=== PATIENT | male | born 1930 | race Caucasian/White ===

== ENCOUNTER 2017-10-30 09:40 | Outpatient (CLI) | payer MEDICARE, BC ==
--- NOTE | 2017-10-30 12:25 | CT ---
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 The order states Patient will hand carry disc of last scans to give to technology consultant. However, when a sked, the patient and his stated that they gave the disc to Dr. Yeung. There is no disc availa ble for comparison. TECHNIQUE: Precontrast scan of brain IV injection iodinated contrast media: 100 mL Isovue 370. Postcontrast scan of brain FINDINGS: There is no midline shift or any other mass effect. There is no evidence of acute intracranial hemor rhage, large cortical infarct, obstructive hydrocephalus, or extraaxial fluid collection. There is n o abnormal enhancement or mass. The calvarium is intact. There is diffuse parenchymal volume loss. There are low attenuation areas in the white matter. These are nonspecific, but in a patient of this age, they are probably chronic ischemic white matter changes due to microvascular atherosclerosis. N o intracranial metastasis identified. IMPRESSION: 1. No acute or aggressive intracranial findings. 2. Involutional changes and chronic ischemic white matter changes. jn [] POS: [facility]
--- NOTE | 2017-10-30 15:52 | NM ---
RADIONUCLIDE BONE SCAN: HISTORY: Pancreatic cancer. Renal cancer. FINDINGS: Whole body anterior and posterior images show physiologic uptake of radiotracer throughout the skelet on. Right kidney is absent. Heterogeneous uptake at the shoulders and sternoclavicular joints has t he appearance of degenerative changes. Degenerative changes also involve the medial compartment of t he right knee. Photopenic area over the left knee has the appearance of prior prosthesis. Urine contamination overlies the pelvis. IMPRESSION: No scintigraphic evidence of skeletal metastasis. POS: [facility]
--- NOTE | 2017-10-31 14:32 | CT ---
CT OF THE CHEST AND ABDOMEN AND PELVIS WITH IV CONTRAST: DATE: 10/30/17. PROVIDED CLINICAL HISTORY: Pancreatic lesion, history of renal cancer. FINDINGS: Comparison is made with the CT examinations from [facility] dated 07/02/17 and 07/07/17. The heart, pericardium, and great vessels demonstrate an unchanged CT appearance with median sternoto my, CABG changes, and atherosclerosis redemonstrated. Loculated fluid involving the left hemithorax appears unchanged with respect to the prior study. There is no evidence for right-sided effusion. T here is a somewhat nodular subpleural focus at the posterior aspect of the right hemithorax subjacent the right 9th rib which appears stable with respect to the prior study is of uncertain etiology and significance. The lungs appear otherwise free of significant opacity. The airway appears patent and of normal caliber. There is no evidence for thoracic lymph node enlargement. Multiple circumscribed low-density lesions involving the liver are again seen, the majority of which are compatible with simple cysts and the smaller of which are too small to definitively characterize but likely also reflect cysts and appear stable with respect to the prior study. Postoperative changes of right nephrectomy are again noted. The left kidney, spleen, and left adrena l gland appear unremarkable. There is a stable enhancing solid mass in the pancreatic body measuring about 1.7 cm. No additional pancreatic abnormality is evident. There is suspicious colonic fecal retention suggesting constipation. There is no bowel dilatation, i nflammatory fat stranding, free fluid, or lymph node enlargement. Atherosclerosis is noted involving the abdominal aorta and its branches. The prostate gland appears enlarged and heterogeneous. Bilat eral fat-containing inguinal hernias are seen. The hiatal hernia is again noted. IMPRESSION: Stable exam with respect to the CTs from 07/07/17 and 07/02/17. POS: [facility]
== END 2017-10-30 09:41 | disposition home or self-care (01) ==
LOC: CT 09:40
PROVIDERS: ATTEND Internal Medicine Hematology & Oncology
DX: C65.1 Malignant neoplasm of right renal pelvis (principal); C78.89 Secondary malignant neoplasm of other digestive organs; I67.82 Cerebral ischemia
CPT/HCPCS: 70470; 71260; 74177; 78306; 82565; A9503

== ENCOUNTER 2018-01-30 09:31 | Outpatient (CLI) | payer MEDICARE, BC ==
[2018-01-30] MEDS ORDERED: ISOVUE-370 76%-LOCM 1 ML ONE (15:14)
== END 2018-01-30 09:32 | disposition home or self-care (01) ==
LOC: BICCT 09:31
PROVIDERS: ATTEND Internal Medicine Hematology & Oncology
DX: C65.1 Malignant neoplasm of right renal pelvis (principal); C78.89 Secondary malignant neoplasm of other digestive organs; J90 Pleural effusion, not elsewhere classified; N28.89 Other specified disorders of kidney and ureter; K44.9 Diaphragmatic hernia without obstruction or gangrene; Z90.5 Acquired absence of kidney; K40.90 Unilateral inguinal hernia, without obstruction or gangrene, not specified as recurrent; R22.2 Localized swelling, mass and lump, trunk
CPT/HCPCS: 74177; 82565

== ENCOUNTER 2018-06-15 07:56 | Outpatient (CLI) | payer MEDICARE, BC | END 2018-06-15 07:57 | disposition home or self-care (01) | LOC: BICCT 07:56 | PROVIDERS: ATTEND Internal Medicine Hematology & Oncology | DX: C78.89 Secondary malignant neoplasm of other digestive organs (principal); C65.1 Malignant neoplasm of right renal pelvis; K86.89 Other specified diseases of pancreas; J90 Pleural effusion, not elsewhere classified; K44.9 Diaphragmatic hernia without obstruction or gangrene; K76.89 Other specified diseases of liver; N40.0 Benign prostatic hyperplasia without lower urinary tract symptoms; Z90.5 Acquired absence of kidney | CPT/HCPCS: 74177; 82565 ==

== ENCOUNTER 2019-01-04 09:41 | Outpatient (CLI) | payer MEDICARE, BC ==
[2019-01-04] MEDS ORDERED: ISOVUE-370 76%-LOCM 1 ML ONE (11:57)
--- NOTE | 2019-01-04 13:10 | CT ---
CT OF ABDOMEN AND PELVIS: DATE: 01/04/2019. COMPARISON: 10/30/2017, 07/07/2017. HISTORY: An 88-year-old male with neoplasm of right renal pelvis. TECHNIQUE: Axial CT imaging is obtained at 5 mm intervals from the lung bases through the pubis symphysis with I V and oral contrast. Coronal reformatted imaging obtained. FINDINGS: Partially imaged lung bases demonstrate a stable loculated left-sided pleural fluid collection with t hickening and enhancement of the adjacent visceral and parietal pleura, stable since the prior 018 examination. This is also similar when compared to a study performed 07/07/2017 at [facility]. Linear density in the lingula is noted and also stable when compared to multiple prior exa minations. Similarly, a focal area of peripheral parenchymal opacity in the posterolateral right low er lobe on image 2 is stable when compared to multiple prior exams. Incompletely assessed coronary a rterial calcification noted. Stable moderate-sized hiatal hernia, unchanged since 2017. Midline claudia rnotomy wires are present. No free intraperitoneal air or fluid is evident. Stable bilateral fat-co ntaining inguinal hernias. There are numerous low-density lesions within the right and left lobes of the liver, similar when com pared to studies back to 2017, evidence of humerous hepatic cysts. The patient is status post right nephrectomy. The right nephrectomy bed appears stable, with stable postoperative clips in place. Th e left adrenal gland, the spleen, and the left kidney appear grossly unremarkable. There is a lesion within the body of the pancreas which is hyperdense, presumably enhancing, measurin g approximately 1.6 cm in transverse dimension. Of note, this enhancing pancreatic lesion is stable when compared to the 07/07/2017 exam and the 10/30/2017 exam. The prostate gland is heterogeneous and enlarged. There is significant stool within the colon. Ther e are clips in the right lower quadrant. There is a soft tissue mass with angulated margins in the right lower quadrant, best seen on coronal image 5, measuring 2.2 cm in craniocaudal dimension. This is stable when compared to 07/07/2017 and exams. This could be related to treated malignancy and carcinoid tumor. Clinical correlati on is required. There is multifocal atherosclerotic calcification of the abdominal aorta and its bra nches. No pelvic or retroperitoneal lymphadenopathy. Review of the osseous structures demonstrates no acute findings. IMPRESSION: 1. Status post right nephrectomy. 2. Mesenteric right lower quadrant soft tissue mass with angulated margins, unchanged since 2017. Q uestion treated malignancy or carcinoid tumor. 3. Stable enhancing lesion within the pancreas, also unchanged since 2017. No new findings are note d. POS: [facility]
== END 2019-01-04 09:42 | disposition home or self-care (01) ==
LOC: BICCT 09:41
PROVIDERS: ATTEND Internal Medicine Hematology & Oncology
DX: C65.1 Malignant neoplasm of right renal pelvis (principal); C78.89 Secondary malignant neoplasm of other digestive organs; Z90.5 Acquired absence of kidney; R19.00 Intra-abdominal and pelvic swelling, mass and lump, unspecified site; K86.89 Other specified diseases of pancreas
CPT/HCPCS: 74177; 82565; Q9966

== ENCOUNTER 2019-08-09 08:53 | Outpatient (CLI) | payer MEDICARE, BC ==
--- NOTE | 2019-08-09 10:37 | CT ---
CT ABDOMEN AND PELVIS WITH IV CONTRAST 08/09/2019 CLINICAL INFORMATION: Malignant neoplasm of right renal pelvis. Secondary malignant neoplasm of other digestive organs. His tory of right nephrectomy. COMPARISON: 01/04/2019 Technique: Multiple contiguous axial CT images are obtained through the abdomen and pelvis with IV contrast. Cor onal reformatted images are provided. FINDINGS: Lower Chest: Again noted is partial visualization of a loculated left-sided pleural fluid collection with thickening and enhancement of the adjacent pleura. There is appears be minimal scarring involving the lingula and right lower lobe. Postsurgical changes related to median sternotomy are see n. Vessels: Vascular calcifications are again seen in the abdominal aorta and involving the iliac arteri es. Abdomen: Portal vein:Patent Gallbladder: Within normal limits for CT imaging. Liver: Again noted are numerous low-density lesions in the right and left hepatic lobes unchanged fro m prior exam and also seen on studies in 2017 most likely related to numerous cysts. Spleen: Normal appearance for phase of enhancement. Pancreas: A 1.8 cm increased density lesion is seen in the body of the spleen. This lesion was also s een on prior exam. While the measurement is slightly larger in size, this may be related to slice selection. Adrenals: Left adrenal gland demonstrates a normal appearance. There is evidence of right adrenalecto my. Kidneys: Left kidney demonstrates a normal CT appearance. There is evidence of a right nephrectomy. Bowel: Stable moderate-sized hiatal hernia is noted. A moderate amount of retained fecal material see n throughout the colon. Loops of small bowel are normal in caliber. Appendix: Not visualized. No secondary signs are seen to suggest appendicitis. Multiple surgical clip s are seen in the right lower quadrant. Peritoneum: No ascites or free air; no fluid collection. Mesentery and Retroperitoneum: There is a masslike soft tissue density with angulated margins again s een within the right lower quadrant mesentery. This is again better visualized on coronal imaging. This measures approximately 2.3 cm. Prior measurement of 2.2 cm was obtained. Differences in size is probably due to slice selection. Abdominal Wall: There are fat-containing bilateral inguinal hernias. Tiny amount of fluid is seen in the right inguinal hernia. Pelvis: Reproductive Organs: Prostate gland is enlarged and heterogeneous in appearance. This is stable gabriella red to prior exam Pelvis within normal limits. Bladder: Mild mass effect on the posterior inferior aspect of the urinary bladder due to the enlarged prostate gland. Urinary bladder otherwise has a normal CT appearance. Bones: Degenerative changes are seen in the spine. No suspicious lytic or sclerotic osseous lesions a re identified. IMPRESSION: 1. Stable incompletely imaged loculated left pleural fluid collection. 2. Multiple hepatic cysts. 3. Stable enhancing lesion in the body of the pancreas. 4. Postsurgical changes related to right adrenalectomy and nephrectomy. 5. Stable right lower quadrant mesenteric soft tissue mass with angulated margins. This could be seco ndary to prior treated malignancy or carcinoid tumor. Scarring is a possibility. This was also seen on prior study in 2017. 6. Enlarged heterogeneous prostate gland. 7. Fat-containing bilateral inguinal hernias. 8. Moderate amount of retained fecal material seen throughout the colon.
== END 2019-08-09 08:54 | disposition home or self-care (01) ==
LOC: BICCT 08:53
PROVIDERS: ATTEND Internal Medicine Hematology & Oncology
DX: C65.1 Malignant neoplasm of right renal pelvis (principal); C78.89 Secondary malignant neoplasm of other digestive organs; K76.89 Other specified diseases of liver; K86.89 Other specified diseases of pancreas; N40.0 Benign prostatic hyperplasia without lower urinary tract symptoms; K59.00 Constipation, unspecified; K40.20 Bilateral inguinal hernia, without obstruction or gangrene, not specified as recurrent; Z98.890 Other specified postprocedural states; Z90.5 Acquired absence of kidney; Z90.89 Acquired absence of other organs
CPT/HCPCS: 74177; 82565